=== PATIENT | male | born 1945 | race African-American/Black ===

== ENCOUNTER 2021-11-20 09:49 | Emergency (ER) | payer OTHER ==
[~2021-11-20] VITALS: Ht 167.6 cm; Wt 78.0 kg
[2021-11-20] MEDS ORDERED: KETOROLAC 15MG/ML VIAL IV NR (10:30)
[2021-11-20] MEDS ORDERED: METOCLOPRAMIDE HCL 10MG/2ML VIAL IV NR (10:30)
[2021-11-20 10:43] LABS: BASOPHILS % 1.1 % (0.0-2.0); HEMATOCRIT. 39.6 % (42.0-52.0); HEMOGLOBIN. 13.2 g/dL (14.0-18.0); LYMPHOCYTES % 44.4 % (20.0-50.0); MEAN CORPUSCULAR VOLUME 87.1 fL (80.0-94.0); MONOCYTES % 9.2 % (2.0-8.0); NEUTROPHILS % 44.3 % (40.0-76.0); PLATELET 218 x1000/uL (130-400); RED BLOOD CELL COUNT 4.54 mill/uL (4.7-6.1); RED CELL DISTRIBUTION WIDTH 14.1 % (11.6-14.6)
[2021-11-20 10:49] LABS: CHLORIDE 105 mEq/L (98-107)
[2021-11-20 10:54] LABS: INR 1.1
[2021-11-20] MEDS ORDERED: TOPUD PO (12:03)
[2021-11-20 13:22] VITALS: BP 139/97
== END 2021-11-20 13:33 | disposition home or self-care (01) ==
LOC: ER 10:56
DX: R10.9 Unspecified abdominal pain (principal); I10 Essential (primary) hypertension; Z90.49 Acquired absence of other specified parts of digestive tract
CPT/HCPCS: 36415; 74176; 80053; 83690; 85025; 85610; 96374; 96375; 99284; J1885; J2765